=== PATIENT | female | born 1970 | race Caucasian/White ===

== ENCOUNTER 2020-10-24 08:30 | Outpatient (RCR) | payer OTHER | END 2020-11-22 | disposition home or self-care (01) | PROVIDERS: ATTEND Family Medicine | DX: M54.2 Cervicalgia (principal); M25.551 Pain in right hip; M25.552 Pain in left hip; G43.909 Migraine, unspecified, not intractable, without status migrainosus; M79.622 Pain in left upper arm; M79.621 Pain in right upper arm; M62.838 Other muscle spasm ==

== ENCOUNTER → 2020-12-26 | Outpatient (CLI) | payer OTHER ==
--- NOTE | 2020-12-26 11:39 | Diagnostic Imaging Report ---
INDICATION: Chronic neck pain. TIME OF EXAM: 11:21 a.m. FINDINGS: AP, lateral, and odontoid views of the cervical spine were obtained. There is some straightening of the normal cervical lordotic curvature. Alignment is normal. There is some mild degenerative disc disease at the C4-C5 level with disc space narrowing and marginal spurring. The prevertebral tissues are normal. Odontoid appears intact. IMPRESSION: Mild cervical spondylosis. No acute bony abnormality is detected. Dictated by: Dictated on workstation # [id number]
== END ==
LOC: RAD 10:42
PROVIDERS: ATTEND Family Medicine
DX: M47.812 Spondylosis without myelopathy or radiculopathy, cervical region (principal); E04.2 Nontoxic multinodular goiter
CPT/HCPCS: 72040

== ENCOUNTER → 2021-01-08 | Outpatient (CLI) | payer OTHER ==
[~2021-01-08] MED LIST: GADOTERATE 0.5 MMOL/ML (CLARISCAN) 15 ML VIAL IV ONE; GADOTERATE 0.5 MMOL/ML (CLARISCAN) 20 ML VIAL IV ONE
--- NOTE | 2021-01-08 09:05 | Diagnostic Imaging Report ---
PROCEDURE: US Thyroid. TECHNIQUE: Multiple Real-time grayscale images were obtained of the thyroid in various projections. INDICATION: Thyroid nodule. Enlarged thyroid. FINDINGS: The right lobe measures 2.6 x 5.7 cm. The left lobe measures 1.4 x 4.5 cm. There is a 2 x 3 cm slightly heterogeneous but solid nodule in the right lobe. This has a sonographic halo sign, usually indicative of a benign lesion; however, due to the size, this could either be biopsied or followed for stability. There are no nodules on the left. IMPRESSION: There is a 3 cm nodule on the right. This is probably benign but could be either biopsied or followed for stability. Dictated by: Dictated on workstation # [id number]
--- NOTE | 2021-01-08 11:17 | Diagnostic Imaging Report ---
Clinical indication: Patient with neck pain and thyroid nodules. Exam: MRI of the cervical spine performed without and with 15 mL of Clariscan IV contrast. Sequences include sagittal T1, sagittal T2, sagittal stir, axial T1, axial T2, axial T1 fat-sat post IV contrast, sagittal T1 fat-sat post IV contrast. Comparison: X-ray of the cervical spine dated 12/26/2020. Findings: There is no acute cervical spine fracture or dislocation. There is no significant abnormal vertebral body signal. There is no significant paraspinal soft tissue abnormality. MRI saturation bands obscured visualization of the thyroid region. There are cervical spine vertebral body spurs. There is no abnormal IV contrast enhancement. Cervical spinal cord has normal cord caliber with no abnormal signal. Limited visualization of posterior fossa is unremarkable. C1-C2: Unremarkable. C2-C3: There is moderate right facet arthropathy. There is no significant central canal or neural foramen narrowing. C3-C4: Unremarkable. C4-C5: There is a diffuse disk bulge with small broad posterior disk herniation component. There is moderate loss of disk space height. There is moderate left neural foramen narrowing and mild right neural foramen narrowing. There is mild to moderate central canal stenosis. C5-C6: There is a diffuse disk bulge with superimposed small broad posterior disk herniation. There is no significant neural foramen narrowing. There is moderate central canal stenosis. There is no significant loss of disk space height. C6-C7: There is a diffuse disk bulge with mild bilateral facet arthropathy. There is moderate left neural foramen narrowing and no significant right neural foramen narrowing. There is mild central canal stenosis. C7-T1: Unremarkable. IMPRESSION: 1: There is no abnormal IV contrast enhancement. There is no acute cervical spine fracture or dislocation. 2: There is multilevel cervical spine degenerative disk disease, as described above. Dictated by: Dictated on workstation # [id number]
== END ==
LOC: RAD 08:00
PROVIDERS: ATTEND Family Medicine
DX: M47.812 Spondylosis without myelopathy or radiculopathy, cervical region (principal); M50.223 Other cervical disc displacement at C6-C7 level; M48.02 Spinal stenosis, cervical region; E04.2 Nontoxic multinodular goiter
CPT/HCPCS: 72156; 76536